=== PATIENT | female | born 1935 | race Caucasian/White ===

== ENCOUNTER → 2017-05-10 | Outpatient (RCR) | payer OTHER ==
[~2017-05-10] MED LIST: CALCIUM500 M3 PO; CRESTOR10 M1 ORAL; FISH OIL CAP1000 MG ORAL; FLUOXETINE HCL10 MG ORAL; FUROSEMIDE20 M1 ORAL; ISOSORBIDE DINI30 MG ORAL; JANUVIA50 MG ORAL; LEVOTHYROXINE100 MCG ORAL; LOSARTAN-HCTZ1 EAC1 ORAL; METOPROLOL SUC100 MG ORAL; NITROSTAT0.4 M1 SL; PLAVIX75 MG ORAL; ZOLPIDEM TARTRAT5 MG ORAL
== END | disposition home or self-care (01) ==
LOC: PTY 04-12 14:00
DX: M76.61 Achilles tendinitis, right leg (principal); E11.21 Type 2 diabetes mellitus with diabetic nephropathy; M54.9 Dorsalgia, unspecified; I50.32 Chronic diastolic (congestive) heart failure; I25.119 Atherosclerotic heart disease of native coronary artery with unspecified angina pectoris; Z95.1 Presence of aortocoronary bypass graft; I10 Essential (primary) hypertension; E78.5 Hyperlipidemia, unspecified; I70.0 Atherosclerosis of aorta
CPT/HCPCS: 97035; 97140; 97162; G0283